=== PATIENT | male | born 1955 | race Caucasian/White ===

== ENCOUNTER 2017-08-20 09:08 | Inpatient (IN) | payer OTHER ==
[2017-08-20 11:40] VITALS: BMI 30.2
--- NOTE | 2017-08-20 12:40 | HP ---
CIWA Score - CIWA Score Nausea/Vomitin-Mild Nausea/No Vomiting Muscle Tremors: 4-Moderate,w/Arms Extend Anxiety: 4-Mod. Anxious/Guarded Agitation: 1-Slight > Activity Paroxysmal Sweats: No Perspiration Orientation: 1-Uncertain about Date Tacttile Disturbances: 0-None Auditory Disturbances: 1-Very Mild Visual Disturbances: 1-Very Mild Sensitivity Headache: 1-Very Mild CIWA-Ar Total Score: 14 Admission ROS BHS - HPI Chief Complaint: I want to stop drinking Allergies/Adverse Reactions: Allergies Allergy/AdvReac Type Severity Reaction Status Date / Time No Known Allergies Allergy Verified 08/20/17 12:04 History of Present Illness: 62 yo gentleman here for detox from alcohol. Was in [facility] ED last night thus benzo in urine tox. NO seizures, does have black outs. Last time in detox about a month ago. Exam Limitations: Clinical Condition - Ebola screening Have you traveled outside of the country in the last 21 days: No (N) Have you had contact with anyone from an Ebola affected area: No Have you been sick,other than usual withdrawal symptoms: No Do you have a fever: No - Review of Systems Constitutional: Chills, Loss of Appetite, Malaise, Changes in sleep, Weakness EENT: reports: Blurred Vision Respiratory: reports: No Symptoms reported Cardiac: reports: Palpitations, Chest Tightness GI: reports: Nausea, Poor Fluid Intake, Indigestion : reports: Frequency Musculoskeletal: reports: Back Pain, Joint Pain, Muscle Pain Integumentary: reports: No Symptoms Reported Neuro: reports: Headache, Tremors Endocrine: reports: No Symptoms Reported Hematology: reports: No Symptoms Reported Psychiatric: reports: Judgement Intact, Mood/Affect Appropiate Other Systems: Reviewed and Negative Patient History - Patient Medical History Hx Asthma: No Hx Chronic Obstructive Pulmonary Disease (COPD): No Hx Cancer: No Hx Cardiac Disorders: No Hx Congestive Heart Failure: No Hx Hypertension: Yes Hx Pacemaker: No HX Cerebrovascular Accident: No Hx Seizures: No Hx Diabetes: No Hx Gastrointestinal Disorders: No Hx Genitourinary Disorders: No Hx Sexually Transmitted Disorders: No Hx Renal Disease (ESRD): No Hx Thyroid Disease: No Hx Human Immunodeficiency Virus (HIV): No Hx Hepatitis C: No Hx Depression: Yes (on meds, history of being hospitalized) Hx Suicide Attempt: No Hx Schizophrenia: No - Patient Surgical History Past Surgical History: Yes Hx Neurologic Surgery: No Hx Cataract Extraction: Yes (left eye) Hx Cardiac Surgery: No Hx Lung Surgery: No Hx Breast Surgery: No Hx Breast Biopsy: No Hx Abdominal Surgery: No Hx Appendectomy: No Hx Cholecystectomy: Yes Hx Genitourinary Surgery: No Hx Section: No Hx Orthopedic Surgery: Yes (left knee replacement) Anesthesia Reaction: No - PPD History Previous Implant?: Yes Documented Results: Negative w/o proof Implanted On Prior [facility] Admission?: No PPD to be Administered?: Yes - Reproductive History Patient is a Female of Child Bearing Age (11 -55 yrs old): No (male) Patient : No - Smoking Cessation Smoking history: Current every day smoker Have you smoked in the past 12 months: Yes Aproximately how many cigarettes per day: 30 Hx Chewing Tobacco Use: No Initiated information on smoking cessation: Yes 'Breaking Loose' booklet given: 08/20/17 (give on floor) - Substance & Tx. History Hx Alcohol Use: Yes Hx Substance Use: Yes (none for years) Substance Use Type: Alcohol, Cocaine Hx Substance Use Treatment: Yes (detox, rehab) - Substances Abused etoh Route: Oral Frequency: Daily Amount used: 1 litre vodka Age of first use: 13 Date of Last Use: 08/19/17 Family Disease History - Family Disease History Family Disease History: Diabetes: Brother (six - living - ), Sister (five - living - ), Heart Disease: Brother, CA: Father (, stomach cancer, etoh) , Mother (, lung cancer), Other: Father, Mother, Brother, Sister, Daughter (three living, healthy) Admission Physical Exam [facility] - Vital Signs Vital Signs: Vital Signs - 24 hr 08/20/17 11:36 Temperature 97.5 F L Pulse Rate 103 H Respiratory 18 Rate Blood Pressure 162/108 - Physical General Appearance: Yes: Nourished, Appropriately Dressed, Mild Distress HEENTM: Yes: Hearing grossly Normal, Normocephalic, Normal Voice, Other (white coating on tongue (denies dysphagia)) Respiratory: Yes: Normal Breath Sounds, No Respiratory Distress Neck: Yes: No masses,lesions,Nodules, Supple Breast: Yes: Breast Exam Deferred Cardiology: Yes: Regular Rhythm, Tachycardia Abdominal: Yes: Non Tender, Soft Genitourinary: Yes: Frequency Back: Yes: Normal Inspection Musculoskeletal: Yes: Back pain, Joint Stiffness, Other (uses cane) Extremities: Yes: Normal Inspection Neurological: Yes: Fully Oriented, Alert, Normal Mood/Affect, Normal Response Integumentary: Yes: Normal Color, Dry, Warm Lymphatic: Yes: Within Normal Limits - Diagnostic (1) Alcohol dependence with withdrawal Current Visit: Yes Status: Chronic Qualifiers: Complication of substance-induced condition: uncomplicated Qualified Code(s ): F10.230 - Alcohol dependence with withdrawal, uncomplicated (2) Osteoarthritis Current Visit: Yes Status: Acute Qualifiers: Osteoarthritis location: multiple joints Osteoarthritis type: primary Qualified Code(s): M15.0 - Primary generalized (osteo)arthritis (3) History of left knee replacement Current Visit: Yes Status: Chronic (4) Ambulates with cane Current Visit: Yes Status: Chronic (5) Dehydration Current Visit: Yes Status: Acute (6) HTN (hypertension) Current Visit: Yes Status: Acute Qualifiers: Hypertension type: essential hypertension Qualified Code(s): I10 - Essential (primary) hypertension (7) Nicotine dependence Current Visit: Yes Status: Acute Qualifiers: Nicotine product type: cigarettes Substance use status: uncomplicated Qualified Code(s): F17.210 - Nicotine dependence, cigarettes, uncomplicated Cleared for Admission BHS - Detox or Rehab [facility] Level of Care: Medically Managed Detox Regimen/Protocol: Librium [facility] Breath Alcohol Content Breath Alcohol Content: 0 Urine Drug Screen - Results Drug Screen Negative: No Urine Drug Screen Results: BZO-Benzodiazepines
[2017-08-20] MEDS ORDERED: MAGNESIUM CITRATE 300 ML BOTTLE PO PRN (12:56)
[2017-08-20] MEDS ORDERED: IBUPROFEN 400 MG TABLET (FP) PO PRN (12:56)
[2017-08-20] MEDS ORDERED: guaiFENesin/D-METHORPHAN HB 10 ML UNIT-DOSE CUPS PO PRN (12:56)
[2017-08-20] MEDS ORDERED: MAG HYDROX/AL HYDROX/SIMETH 30 ML UNIT-DOSE CUP PO PRN (12:56)
[2017-08-20] MEDS ORDERED: MAGNESIUM HYDROX 2400MG/30ML ORAL SUSPENSION 30 ML CUP PO PRN (12:56)
[2017-08-20] MEDS ORDERED: MENTHOL/PHENOL 1 EACH UD MM PRN (12:56)
[2017-08-20] MEDS ORDERED: LOPERAMIDE HCL 2 MG CAPSULE PO PRN (12:56)
[2017-08-20] MEDS ORDERED: ACETAMINOPHEN 325 MG TABLET (FP) PO PRN (12:56)
[2017-08-20] MEDS ORDERED: P-EPHED 60MG/TRIPROLIDI 2.5MG TABLET PO PRN (12:56)
[2017-08-20] MEDS: ENALAPRIL MALEATE 5 MG TABLET (FP) PO SCH (15:31)
[2017-08-20] MEDS: NICOTINE 21 MG/24 HOURS TOPICAL PATCH TD SCH (15:31)
[2017-08-20 17:37] LABS: URINE APPEARANCE SLCLOUDY; URINE BLOOD 1+ (NEGATIVE); URINE COLOR AMBER; URINE GLUCOSE (UA) 1+ (NEGATIVE); URINE KETONE 1+ (NEGATIVE); URINE LEUK ESTERASE NEGATIVE (NEGATIVE); URINE NITRITE NEGATIVE (NEGATIVE); URINE UROBILINOGEN 4.0 E.U/dl mg/dL (0.2-1.0)
[2017-08-20 17:38] LABS: URINE PROTEIN 2+ (NEGATIVE)
[2017-08-20 17:44] LABS: EPI CELLS RARE /HPF (FEW); URINE BACTERIA RARE /hpf (NONE SEEN); URINE MUCUS MANY
[2017-08-20] MEDS: chlordiazePOXIDE HCL 25 MG CAPSULE PO SCH ×2 (17:55→22:31)
[2017-08-20] MEDS: THIAMINE HCL 100 MG TABLET (FP) PO SCH (22:31)
[2017-08-21] MEDS: chlordiazePOXIDE HCL 25 MG CAPSULE PO SCH ×4 (05:29→22:19)
[2017-08-21] MEDS: PRENATAL VITAMINS W/ FOLIC ACID TABLET (FP) PO SCH (10:23)
[2017-08-21] MEDS: NICOTINE 21 MG/24 HOURS TOPICAL PATCH TD SCH (10:24)
[2017-08-21 10:39] LABS: ALBUMIN 3.7 g/dl (3.4-5.0); ANION GAP 13 (8-16); BLOOD UREA NITROGEN 10 mg/dL (7-18); CALCIUM 9.2 mg/dL (8.5-10.1); CHLORIDE 99 mmol/L (98-107); CO2 29 mmol/L (21-32); GLUCOSE,RANDOM 106 mg/dL (74-106); HEMATOCRIT 40.6 % (35.4-49); HEMOGLOBIN 13.9 GM/dL (11.7-16.9); MCH 32.7 pg (25.7-33.7); MCHC 34.2 g/dl (32.0-35.9); MEAN CELL VOLUME 95.4 fl (80-96); MEAN PLT VOLUME 9.4 fl (7.5-11.1); PLATELET COUNT 72 K/MM3 (134-434); RBC 4.26 M/mm3 (4.00-5.60); SODIUM 141 mmol/L (136-145); WHITE BLOOD COUNT 4.4 K/mm3 (4.0-10.0)
[2017-08-21 10:43] LABS: ALK PHOS 76 U/L (45-117); BILIRUBIN,TOTAL 0.7 mg/dL (0.2-1.0); CREATININE 0.6 mg/dL (0.7-1.3); SGOT/AST 44 U/L (15-37); SGPT/ALT 31 U/L (12-78); TOT PROT 7.2 g/dl (6.4-8.2)
[2017-08-21] MEDS: ENALAPRIL MALEATE 5 MG TABLET (FP) PO SCH (11:00)
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
[2017-08-21 11:22] LABS: POTASSIUM 2.8 mmol/L (3.5-5.1)
--- NOTE | 2017-08-21 11:40 | PN ---
S CIWA - CIWA Score Nausea/Vomitin-Mild Nausea/No Vomiting Muscle Tremors: 3 Anxiety: 4-Mod. Anxious/Guarded Agitation: 3 Paroxysmal Sweats: 1-Minimal Palms Moist Orientation: 0-Oriented Tacttile Disturbances: 1-Very Mild Itch/Numbness Auditory Disturbances: 0-None Visual Disturbances: 0-None Headache: 0-None Present CIWA-Ar Total Score: 13 BHS Progress Note (SOAP) Subjective: sweat tremor restlessness anxiety irritable denies chest pain no shortness of breath Objective: 08/21/17 11:37 Vital Signs Temperature 97.5 F L 08/21/17 10:27 Pulse Rate 93 H 08/21/17 10:27 Respiratory Rate 18 08/21/17 10:27 Blood Pressure 135/72 08/21/17 10:27 O2 Sat by Pulse Oximetry (%) Laboratory Last Values WBC 4.4 K/mm3 (4.0-10.0) 08/21/17 08:00 RBC 4.26 M/mm3 (4.00-5.60) 08/21/17 08:00 Hgb 13.9 GM/dL (11.7-16.9) 08/21/17 08:00 Hct 40.6 % (35.4-49) 08/21/17 08:00 MCV 95.4 fl (80-96) 08/21/17 08:00 MCH 32.7 pg (25.7-33.7) 08/21/17 08:00 MCHC 34.2 g/dl (32.0-35.9) 08/21/17 08:00 RDW 14.0 % (11.9-15.9) 08/21/17 08:00 Plt Count 72 K/MM3 (134-434) L 08/21/17 08:00 MPV 9.4 fl (7.5-11.1) 08/21/17 08:00 Sodium 141 mmol/L (136-145) 08/21/17 08:00 Potassium 2.8 mmol/L (3.5-5.1) L* 08/21/17 08:00 Chloride 99 mmol/L (98-107) 08/21/17 08:00 Carbon Dioxide 29 mmol/L (21-32) 08/21/17 08:00 Anion Gap 13 (8-16) 08/21/17 08:00 BUN 10 mg/dL (7-18) 08/21/17 08:00 Creatinine 0.6 mg/dL (0.7-1.3) L 08/21/17 08:00 Creat Clearance w eGFR > 60 (>60) 08/21/17 08:00 Random Glucose 106 mg/dL (74-106) 08/21/17 08:00 Calcium 9.2 mg/dL (8.5-10.1) 08/21/17 08:00 Total Bilirubin 0.7 mg/dL (0.2-1.0) 08/21/17 08:00 AST 44 U/L (15-37) H 08/21/17 08:00 ALT 31 U/L (12-78) 08/21/17 08:00 Alkaline Phosphatase 76 U/L (45-117) 08/21/17 08:00 Total Protein 7.2 g/dl (6.4-8.2) 08/21/17 08:00 Albumin 3.7 g/dl (3.4-5.0) 08/21/17 08:00 Urine Color Jessica 08/20/17 15:25 Urine Appearance Slcloudy 08/20/17 15:25 Urine pH 6.0 (5.0-8.0) 08/20/17 15:25 Ur Specific [place] 1.027 (1.001-1.035) 08/20/17 15:25 Urine Protein 2+ (NEGATIVE) H 08/20/17 15:25 Urine Glucose (UA) 1+ (NEGATIVE) H 08/20/17 15:25 Urine Ketones 1+ (NEGATIVE) H 08/20/17 15:25 Urine Blood 1+ (NEGATIVE) H 08/20/17 15:25 Urine Nitrite Negative (NEGATIVE) 08/20/17 15:25 Urine Bilirubin 2.0 (NEGATIVE) 08/20/17 15:25 Urine Urobilinogen 4.0 e.u/dl mg/dL (0.2-1.0) 08/20/17 15:25 Ur Leukocyte Esterase Negative (NEGATIVE) 08/20/17 15:25 Urine WBC (Auto) 4 /hpf (3-5) 08/20/17 15:25 Urine RBC (Auto) 8 /hpf (0-3) 08/20/17 15:25 Ur Epithelial Cells Rare /HPF (FEW) 08/20/17 15:25 Urine Bacteria Rare /hpf (NONE SEEN) 08/20/17 15:25 Urine Mucus Many 08/20/17 15:25 lab noted potassium supplement repeat camp Assessment: 08/21/17 11:38 withdrawal sx hypokalemia Plan: continue detox potassium 20 meq po bid repeat K+ 08/23/17
[2017-08-21] MEDS: POTASSIUM CHLORIDE ORAL LIQUID 20 MEQ/15 ML PO SCH ×2 (13:00→22:19)
--- NOTE | 2017-08-21 14:29 | EKG ---
Test Reason : Blood Pressure : / mmHG Vent. Rate : 097 BPM Atrial Rate : 097 BPM P-R Int : 172 ms QRS Dur : 104 ms QT Int : 358 ms P-R-T Axes : 077 -11 051 degrees QTc Int : 454 ms NORMAL SINUS RHYTHM POSSIBLE ANTERIOR INFARCT , AGE UNDETERMINED ABNORMAL ECG NO PREVIOUS ECGS AVAILABLE Confirmed by MD NITHYA, MACKENZIE ([id number]) on 08/21/2017 2:29:10 PM Referred By: Confirmed By:MACKENZIE BARRIGA MD
[2017-08-21] MEDS ORDERED: ZOLPIDEM TARTRATE 5 MG TABLET PO PRN (22:00)
[2017-08-21] MEDS: THIAMINE HCL 100 MG TABLET (FP) PO SCH (22:19)
[2017-08-22] MEDS: chlordiazePOXIDE HCL 25 MG CAPSULE PO PRN (02:13)
[2017-08-22] MEDS: chlordiazePOXIDE HCL 25 MG CAPSULE PO SCH ×2 (05:14→10:20)
[2017-08-22] MEDS: PRENATAL VITAMINS W/ FOLIC ACID TABLET (FP) PO SCH (10:20)
[2017-08-22] MEDS: ENALAPRIL MALEATE 5 MG TABLET (FP) PO SCH (10:20)
[2017-08-22] MEDS: POTASSIUM CHLORIDE ORAL LIQUID 20 MEQ/15 ML PO SCH ×2 (10:20→22:21)
[2017-08-22] MEDS: NICOTINE 21 MG/24 HOURS TOPICAL PATCH TD SCH (10:22)
[2017-08-22 10:27] LABS: ALBUMIN 3.8 g/dl (3.4-5.0); ANION GAP 6 (8-16); BLOOD UREA NITROGEN 15 mg/dL (7-18); CALCIUM 8.9 mg/dL (8.5-10.1); CHLORIDE 104 mmol/L (98-107); CO2 30 mmol/L (21-32); GLUCOSE,RANDOM 128 mg/dL (74-106); POTASSIUM 3.8 mmol/L (3.5-5.1); SODIUM 140 mmol/L (136-145)
[2017-08-22 10:31] LABS: ALK PHOS 68 U/L (45-117); BILIRUBIN,TOTAL 0.6 mg/dL (0.2-1.0); CREATININE 0.7 mg/dL (0.7-1.3); SGOT/AST 62 U/L (15-37); SGPT/ALT 43 U/L (12-78)
--- NOTE | 2017-08-22 10:37 | PN ---
[facility] CIWA - CIWA Score Nausea/Vomitin Muscle Tremors: 3 Anxiety: 3 Agitation: 3 Paroxysmal Sweats: 1-Minimal Palms Moist Orientation: 0-Oriented Tacttile Disturbances: 1-Very Mild Itch/Numbness Auditory Disturbances: 1-Very Mild Visual Disturbances: 0-None Headache: 2-Mild CIWA-Ar Total Score: 17 S Progress Note (SOAP) Subjective: ALERT,IRRITABLE,ANXIOUS,INTERRUPTED SLEEP,TREMOR,PAIN IN THE KNEE Objective: 08/22/17 10:39 Vital Signs Temperature 97.3 F L 08/22/17 06:00 Pulse Rate 89 08/22/17 06:00 Respiratory Rate 18 08/22/17 06:00 Blood Pressure 132/88 08/22/17 06:00 O2 Sat by Pulse Oximetry (%) 08/22/17 10:41 Laboratory Results - last 24 hr 08/21/17 08/21/17 08/21/17 08:00 08:00 08:00 Sodium 141 Potassium 2.8 L* Chloride 99 Carbon Dioxide 29 Anion Gap 13 BUN 10 Creatinine 0.6 L Creat Clearance w eGFR > 60 Random Glucose 106 Calcium 9.2 Total Bilirubin 0.7 AST 44 H ALT 31 Alkaline Phosphatase 76 Total Protein 7.2 Albumin 3.7 RPR Titer Nonreactive HIV 1&2 Antibody Screen Negative HIV P24 Antigen Negative 08/22/17 07:00 Sodium 140 Potassium 3.8 D Chloride 104 Carbon Dioxide 30 Anion Gap 6 L BUN 15 D Creatinine 0.7 Creat Clearance w eGFR > 60 Random Glucose 128 H D Calcium 8.9 Total Bilirubin 0.6 AST 62 H D ALT 43 D Alkaline Phosphatase 68 Total Protein 7.0 Albumin 3.8 RPR Titer HIV 1&2 Antibody Screen HIV P24 Antigen Assessment: 08/22/17 10:40 EKG NSR NO CHEST PAIN,NO SOB,NO DIZZINESS 08/22/17 10:40 Laboratory Last Values WBC 4.4 K/mm3 (4.0-10.0) 08/21/17 08:00 RBC 4.26 M/mm3 (4.00-5.60) 08/21/17 08:00 Hgb 13.9 GM/dL (11.7-16.9) 08/21/17 08:00 Hct 40.6 % (35.4-49) 08/21/17 08:00 MCV 95.4 fl (80-96) 08/21/17 08:00 MCH 32.7 pg (25.7-33.7) 08/21/17 08:00 MCHC 34.2 g/dl (32.0-35.9) 08/21/17 08:00 RDW 14.0 % (11.9-15.9) 08/21/17 08:00 Plt Count 72 K/MM3 (134-434) L 08/21/17 08:00 MPV 9.4 fl (7.5-11.1) 08/21/17 08:00 Sodium 140 mmol/L (136-145) 08/22/17 07:00 Potassium 3.8 mmol/L (3.5-5.1) D 08/22/17 07:00 Chloride 104 mmol/L (98-107) 08/22/17 07:00 Carbon Dioxide 30 mmol/L (21-32) 08/22/17 07:00 Anion Gap 6 (8-16) L 08/22/17 07:00 BUN 15 mg/dL (7-18) D 08/22/17 07:00 Creatinine 0.7 mg/dL (0.7-1.3) 08/22/17 07:00 Creat Clearance w eGFR > 60 (>60) 08/22/17 07:00 Random Glucose 128 mg/dL (74-106) H D 08/22/17 07:00 Calcium 8.9 mg/dL (8.5-10.1) 08/22/17 07:00 Total Bilirubin 0.6 mg/dL (0.2-1.0) 08/22/17 07:00 AST 62 U/L (15-37) H D 08/22/17 07:00 ALT 43 U/L (12-78) D 08/22/17 07:00 Alkaline Phosphatase 68 U/L (45-117) 08/22/17 07:00 Total Protein 7.0 g/dl (6.4-8.2) 08/22/17 07:00 Albumin 3.8 g/dl (3.4-5.0) 08/22/17 07:00 Urine Color Jessica 08/20/17 15:25 Urine Appearance Slcloudy 08/20/17 15:25 Urine pH 6.0 (5.0-8.0) 08/20/17 15:25 Ur Specific [place] 1.027 (1.001-1.035) 08/20/17 15:25 Urine Protein 2+ (NEGATIVE) H 08/20/17 15:25 Urine Glucose (UA) 1+ (NEGATIVE) H 08/20/17 15:25 Urine Ketones 1+ (NEGATIVE) H 08/20/17 15:25 Urine Blood 1+ (NEGATIVE) H 08/20/17 15:25 Urine Nitrite Negative (NEGATIVE) 08/20/17 15:25 Urine Bilirubin 2.0 (NEGATIVE) 08/20/17 15:25 Urine Urobilinogen 4.0 e.u/dl mg/dL (0.2-1.0) 08/20/17 15:25 Ur Leukocyte Esterase Negative (NEGATIVE) 08/20/17 15:25 Urine WBC (Auto) 4 /hpf (3-5) 08/20/17 15:25 Urine RBC (Auto) 8 /hpf (0-3) 08/20/17 15:25 Ur Epithelial Cells Rare /HPF (FEW) 08/20/17 15:25 Urine Bacteria Rare /hpf (NONE SEEN) 08/20/17 15:25 Urine Mucus Many 08/20/17 15:25 RPR Titer Nonreactive (NONREACTIVE) 08/21/17 08:00 HIV 1&2 Antibody Screen Negative 08/21/17 08:00 HIV P24 Antigen Negative 08/21/17 08:00 Plan: WITHDRAWAL SYMPTOM,CONTINUE DETOX,CONTINUE K REPLACEMENT
[2017-08-22] MEDS: chlordiazePOXIDE 5 MG CAPSULE PO SCH ×2 (17:39→22:19)
[2017-08-22] MEDS: THIAMINE HCL 100 MG TABLET (FP) PO SCH (22:20)
[2017-08-23] MEDS: chlordiazePOXIDE HCL 25 MG CAPSULE PO PRN (01:56)
[2017-08-23] MEDS: chlordiazePOXIDE 5 MG CAPSULE PO SCH ×2 (05:31→10:35)
[2017-08-23 06:35] VITALS: BP 149/94; PULSE 71; TEMP 97.7
--- NOTE | 2017-08-23 09:38 | PN ---
[facility] Progress Note Note: ALERT,NO COMPLAINT,PATIENT IS STABLE FOR DISCHARGE TODAY,WOULD LIKE TO GO HOME BEFORE [place] TOMORROW,SEEN BY COUNSELOR,DISCHARGE TODAY
--- NOTE | 2017-08-23 09:42 | DS ---
[facility] Detox Discharge Summary Admission Date: 08/20/17 Discharge Date: 08/23/17 - History Present History: Alcohol Dependence Additional Comments: FOLLOW UP WITH AFTER CARE PROGRAM ARRANGEMENT Pertinent Past History: OSTEOARTHRITIS HISTORY OF LEFT KNEE REPLACEMENT HYPERTENSION CANE AMBULATION NICOTINE DEPENDENCE - Physical Exam Results Vital Signs: Vital Signs Temperature 97.7 F 08/23/17 06:00 Pulse Rate 71 08/23/17 06:00 Respiratory Rate 18 08/23/17 06:00 Blood Pressure 149/94 08/23/17 06:00 O2 Sat by Pulse Oximetry (%) Pertinent Admission Physical Exam Findings: WITHDRAWAL SYMPTOM AND SIGNS - Treatment Hospital Course: Detox Protocol Followed, Detoxed Safely, Responded well, Discharged Condition Good Patient has Accepted a Rehab Referral to: DECLINED - Medication Discharge Medications: Ambulatory Orders Citalopram Hydrobromide [Celexa -] 20 mg PO DAILY 08/20/17 Enalapril Maleate 5 mg PO DAILY 08/20/17 Indomethacin [Indocin -] 25 mg PO BID 08/20/17 - Diagnosis (1) Alcohol dependence with withdrawal Current Visit: Yes Status: Acute Qualifiers: Complication of substance-induced condition: uncomplicated Qualified Code(s ): F10.230 - Alcohol dependence with withdrawal, uncomplicated (2) Ambulates with cane Current Visit: Yes Status: Chronic (3) HTN (hypertension) Current Visit: Yes Status: Chronic Qualifiers: Hypertension type: essential hypertension Qualified Code(s): I10 - Essential (primary) hypertension (4) History of left knee replacement Current Visit: Yes Status: Chronic (5) Nicotine dependence Current Visit: Yes Status: Chronic Qualifiers: Nicotine product type: cigarettes Substance use status: uncomplicated Qualified Code(s): F17.210 - Nicotine dependence, cigarettes, uncomplicated (6) Osteoarthritis Current Visit: Yes Status: Chronic Qualifiers: Osteoarthritis location: multiple joints Osteoarthritis type: primary Qualified Code(s): M15.0 - Primary generalized (osteo)arthritis - AMA Did Patient Leave Against Medical Advice: No
[2017-08-23] MEDS: PRENATAL VITAMINS W/ FOLIC ACID TABLET (FP) PO SCH (10:35)
[2017-08-23] MEDS: POTASSIUM CHLORIDE ORAL LIQUID 20 MEQ/15 ML PO SCH (10:35)
[2017-08-23] MEDS: ENALAPRIL MALEATE 5 MG TABLET (FP) PO SCH (10:35)
[2017-08-23] MEDS: NICOTINE 21 MG/24 HOURS TOPICAL PATCH TD SCH (10:36)
[2017-08-23] MEDS ORDERED: chlordiazePOXIDE HCL 10 MG CAPSULE PO SCH (17:00)
== END 2017-08-23 11:30 | disposition home or self-care (01) | DRG 897 ==
LOC: YASAS 09:08 → Y6N 14:10
PROVIDERS: ADMIT Internal Medicine; ATTEND Internal Medicine
PROC: HZ2ZZZZ Detoxification Services for Substance Abuse Treatment (ICD-10-PCS; principal; 2017-08-20)
DX: F10.230 Alcohol dependence with withdrawal, uncomplicated (principal); F19.282 Other psychoactive substance dependence with psychoactive substance-induced sleep disorder; F33.2 Major depressive disorder, recurrent severe without psychotic features; F17.210 Nicotine dependence, cigarettes, uncomplicated; F19.24 Other psychoactive substance dependence with psychoactive substance-induced mood disorder; I10 Essential (primary) hypertension; M15.0 Primary generalized (osteo)arthritis; E87.6 Hypokalemia; E86.0 Dehydration; R00.0 Tachycardia, unspecified; R26.2 Difficulty in walking, not elsewhere classified; Z99.89 Dependence on other enabling machines and devices; Z96.652 Presence of left artificial knee joint
CPT/HCPCS: 36415; 80053; 81003; 81015; 84132; 85027; 86593; 87389; 93005; 93010